=== PATIENT | female | born 1945 | race Caucasian/White ===

== ENCOUNTER 2019-02-07 21:07 | Inpatient (IN) | payer MEDICARE, BC ==
[~2019-02-07] VITALS: Ht 162.6 cm; Wt 94.9 kg
[2019-02-07 21:07] VITALS: BP 185/105
--- NOTE | 2019-02-07 21:08 | NUR ---
ED Nurse Note: FERNANDO from [facility], with complaints of Syncopal episode with suspects of seizure. PAtient is relaxed with son at bedside, will continue to monitor.
--- NOTE | 2019-02-07 21:14 | Emergency Room Report ---
History of Present Illness General Chief Complaint: Syncope Source: Patient Present Illness HPI This is a 73-year-old female with history of diabetes, hypertension, CAD with 2 previous MIs status post stents. She presents with chief complaint of syncope. She is visiting from [place]. She had chest pressure around 3 AM last night. She woke up and take nitroglycerin and went away. She said she had a good day today. She was eating dinner with her son when she lightheaded. She states she saw spots and became very pale. Her son said she was sweaty. She then had a syncopal episode. She was shaky. They thought that she may have had a seizure. 911 was called. On arrival, she is at baseline. She denies any fever or chills but denies any chest pain. She denies any other prodrome. She said this never happened to her before. Allergies: Uncoded Allergies: SULFA (Allergy, Unknown, 02/07/19) Patient History Past Medical History: see triage record, old chart reviewed, DM, HTN, LA, CAD Past Surgical History: other Pertinent Family History: none Social History: Denies: smoking Now: No Immunizations: other Reviewed Nursing Documentation: PMH: Agreed; PSxH: Agreed Nursing Documentation-PMH Hx Cardiac Problems: Yes - hx LA x2 Hx Hypertension: Yes Hx Diabetes: Yes Review of Systems Eye: Denies: eye pain, blurred vision ENT: Denies: ear pain, nose congestion, throat swelling Respiratory: Denies: cough, shortness of breath Cardiovascular: Denies: chest pain, palpitations Gastrointestinal: Denies: abdominal pain, diarrhea, nausea, vomiting Musculoskeletal: Denies: back pain, joint pain Skin: Denies: rash Neurological: Reports: dizziness; Denies: headache, numbness Endocrine: Denies: increased thirst, increased urine Hematologic/Lymphatic: Denies: easy bruising All Other Systems: negative except mentioned in HPI Physical Exam Vital Signs Date Time Temp Pulse Resp B/P (MAP) Pulse Ox O2 Delivery O2 Flow Rate FiO2 02/07/19 21:02 97.9 106 18 185/105 (131) 100 Room Air Vitals with high blood pressure Sp02 EP Interpretation: reviewed, normal General Appearance: well appearing, no apparent distress, alert, obese Head: normocephalic, atraumatic Eyes: bilateral eye PERRL, bilateral eye EOMI ENT: hearing grossly normal, normal pharynx Neck: full range of motion, supple, no meningismus Respiratory: chest non-tender, lungs clear, normal breath sounds Cardiovascular #1: regular rate, rhythm, no murmur Gastrointestinal: normal bowel sounds, non tender, no mass, no organomegaly, no bruit, non-distended Musculoskeletal: back normal, gait/station normal, normal range of motion Psychiatric: mood/affect normal Medical Decision Making Diagnostic Impression: Primary Impression: Syncope Qualified Codes: R55 - Syncope and collapse Additional Impressions: ACS (acute coronary syndrome) CHF exacerbation Qualified Codes: I50.9 - Heart failure, unspecified ER Course Patient presents with syncope. Likely arrhythmia related. Troponin is elevated. She is currently taking Eliquis for atrial fibrillation. She is in sinus. No chest pain. Will admit for further work-up. I discussed the case with Dr. Xavier who will admit. EKG Diagnostic Results Rate: normal Rhythm: NSR ST Segments: other - NSST depression inferior laterally. No ST elevation Rhythm Strip Diag. Results EP Interpretation: yes Rate: 60 Rhythm: NSR, no PVC's, no ectopy Chest X-Ray Diagnostic Results Chest X-Ray Diagnostic Results : Chest X-Ray Ordered: Yes # of Views/Limited/Complete: 1 View Indication: Chest Pain EP Interpretation: Yes Interpretation: no consolidation, no effusion, no pneumothorax, other - CM with chf Impression: Other - chf Electronically Signed by: Modesto Grant MD Last Vital Signs Date Time Temp Pulse Resp B/P (MAP) Pulse Ox O2 Delivery O2 Flow Rate FiO2 02/07/19 21:02 97.9 106 18 185/105 (131) 100 Room Air Status: improved Disposition: ADMITTED INPATIENT Condition: Serious Modesto Grant MD Feb 07, 2019 21:14
[2019-02-07 21:43] LABS: APPEARANCE,URINE CLEAR; BILIRUBIN, URINE NEGATIVE (NEGATIVE); COLOR,URINE PALE YELLOW; GLUCOSE, URINE (UA) NEGATIVE (NEGATIVE); KETONES,URINE NEGATIVE (NEGATIVE); LEUKOCYTE ESTERASE ,URINE 1+ (NEGATIVE); NITRITE,URINE NEGATIVE (NEGATIVE); PH,URINE 5 (4.5-8.0); PROTEIN,URINE 3+ (NEGATIVE); UROBILINOGEN,URINE NORMAL MG/DL (0.0-1.0)
[2019-02-07 21:43] LABS: ANION GAP 16 mmol/L (5-15); BLOOD UREA NITROGEN 24 mg/dL (7-18); CALCIUM 9.2 MG/DL (8.5-10.1); CARBON DIOXIDE 19 MMOL/L (21-32); CHLORIDE 112 MMOL/L (98-107); POTASSIUM 3.6 MMOL/L (3.5-5.1); SODIUM 147 MMOL/L (136-145)
[2019-02-07 21:49] LABS: BASOPHILS % (AUTO) 0.9 % (0.0-2.0); EOSINOPHILS % (AUTO) 2.1 % (0.0-3.0); HEMATOCRIT 40.3 % (37.0-47.0); HEMOGLOBIN 13.2 G/DL (12.0-16.0); LYMPHOCYTES % (AUTO) 30.4 % (20.0-45.0); MEAN CORPUSCULAR VOLUME 86 FL (80-99); MONOCYTES % (AUTO) 7.2 % (1.0-10.0); NEUTROPHILS % (AUTO) 59.5 % (45.0-75.0); PLATELET COUNT 281 K/UL (150-450); RED BLOOD COUNT 4.68 M/UL (4.20-5.40); RED CELL DISTRIBUTION WIDTH 14.1 % (11.6-14.8); WHITE BLOOD COUNT 11.3 K/UL (4.8-10.8)
[2019-02-07 21:52] LABS: INR 1.1 (0.9-1.1)
[2019-02-07 21:58] LABS: ALANINE AMINOTRANSFERASE 89 U/L (12-78); ALBUMIN 3.3 G/DL (3.4-5.0); ALBUMIN/GLOBULIN RATIO 0.9 (1.0-2.7); ALKALINE PHOSPHATASE 136 U/L (46-116); ASPARTATE AMINO TRANSFERASE 101 U/L (15-37); BILIRUBIN,TOTAL 0.5 MG/DL (0.2-1.0); CKMB 4.8 NG/ML (0.0-3.6); CREATINE KINASE 129 U/L (26-308)
[2019-02-07] MEDS ORDERED: Aspirin Baby 81mg ORAL ONE (22:00)
[2019-02-07] MEDS ORDERED: Enoxaparin 120 mg inj SUBQ ONE (22:00)
--- NOTE | 2019-02-07 22:03 | NUR ---
ED Nurse Note: Patient tolerated medication well. Family has a number of questions, ERMD informed. Patient reports taking eliquis this morning, so order for Lovenox will be held, ERMD informed.
[2019-02-07] MEDS ORDERED: NORMODYNE200 MG ORAL (22:30)
[2019-02-07] MEDS ORDERED: ASPIR 8181 MG ORAL (22:30)
[2019-02-07] MEDS ORDERED: VITAMIN D400 INTLU ORAL (22:30)
[2019-02-07] MEDS ORDERED: CITALOPRAM HBR10 M1 ORAL (22:30)
[2019-02-07] MEDS ORDERED: NORVASC10 MG ORAL (22:30)
[2019-02-07] MEDS ORDERED: LEVOTHYROXINE175 MCG ORAL (22:30)
[2019-02-07] MEDS ORDERED: LIPITOR80 MG ORAL (22:30)
[2019-02-07] MEDS ORDERED: METHOTREXA25 MG/1 ML IJ (22:30)
[2019-02-07] MEDS ORDERED: AMBIEN5 MG ORAL (22:30)
[2019-02-07] MEDS ORDERED: REMICADE10 MG IV (22:30)
[2019-02-07] MEDS ORDERED: ISOSORBIDE1 G1 MC (22:30)
[2019-02-07] MEDS ORDERED: FLUCONAZOLE100 MG ORAL (22:30)
[2019-02-07] MEDS ORDERED: APIDRA100 UNIT/2 SQ (22:30)
[2019-02-07] MEDS ORDERED: INSULIN CHARG5 UNITS SUBQ (22:30)
[2019-02-07] MEDS ORDERED: TROSPIUM CHLORI60 MG PO (22:30)
[2019-02-07] MEDS ORDERED: TUMS500 MG ORAL (22:30)
[2019-02-07] MEDS ORDERED: NEURONTIN300 MG ORAL (22:30)
[2019-02-07] MEDS ORDERED: FOLIC ACID1 MG ORAL (22:30)
[2019-02-07] MEDS ORDERED: METFORMIN HCL500 M4 ORAL (22:30)
[2019-02-07] MEDS ORDERED: NITROFURANTOIN1 GM MC (22:30)
[2019-02-07] MEDS ORDERED: NOVOLIN 70100 UNIT/1 SUBQ (22:30)
[2019-02-07] MEDS ORDERED: LOSARTAN POTASS25 M1 PO (22:30)
--- NOTE | 2019-02-07 23:08 | NUR ---
ED Nurse Note: Patient is awake, alert and oriented x4, Has no complaints of pain at this time. Patient does report discomfort with the blood pressure cuff so it has been disconnected to avoid discomfort. Patient has one son remaining at bedside. Since Lasix administration patient has void three times. Will continue to monitor.
--- NOTE | 2019-02-07 23:25 | NUR ---
ED Nurse Note: Belongings sheet completed. Patient's son will take home most of her money and her wallet. Patient will go up with $20 in $5 bills.
[2019-02-08] MEDS ORDERED: Nitroglycerin Subl 0.4mg tab SL PRN
--- NOTE | 2019-02-08 00:40 | NUR ---
ED Nurse Note: Called and gave report to Crystal CUEVAS. She is aware that I will check blood sugar and redraw troponin for patient.
[2019-02-08 01:00] VITALS: BP 156/78
--- NOTE | 2019-02-08 01:00 | NUR ---
NURSE NOTES: Received pt via gurney from ED. Pt transferred to [facility] without any incident. Received report from MASON Lawrence. night monitor is in placed, IV site intact, asymptomatic and patent. Bed is in the lowest position and locked. Call light within reach. Belongings list checked and accounted. Pt's son at bedside. No signs and symptoms of acute distress noted at this time. Received orders from Dr. Bishop. Will note and carry out.
--- NOTE | 2019-02-08 01:01 | NUR ---
ED Nurse Note: Patient trasported to tele without incident.
--- NOTE | 2019-02-08 01:15 | NUR ---
NURSE NOTES: Contacted [facility] regarding Levemir label. [facility] said they will have it print shortly.
--- NOTE | 2019-02-08 01:45 | NUR ---
NURSE NOTES: Contacted [facility] for the third time and spoke to pharmacist, Mary, regarding Levemir and Novolog label which was not printed. Mary said there may be some kind of disconnection and to not hold medication because label cannot be printed. Will administer scheduled 10 units of Levemir SubQ. Asphalt Roller Operator, Lis Lucas and Charge nurse, Kasandra flores. Will ask Pharmacy to print label in the morning when they open.
--- NOTE | 2019-02-08 02:02 | NUR ---
NURSE NOTES: Administer 10 units of Levemir SubQ. Verified right pt, medication, dosage, route, time, frequency, and reason with MASON Leong due to inability to scan medication.
--- NOTE | 2019-02-08 02:46 | NUR ---
NURSE NOTES: Second Troponin draw is 0.427; Troponin trending down.
[2019-02-08 04:00] VITALS: BP 145/76
[2019-02-08] MEDS: NovoLOG Insulin Flexpen SUBQ SCH ×4 (06:22→21:48)
--- NOTE | 2019-02-08 06:38 | NUR ---
NURSE NOTES: Administered sliding scale Novolog 4 units SubQ. Verified right pt, medication, dosage, route, time, frequency, and reason with MASON Leong due to inability to scan medication.
[2019-02-08 07:27] LABS: BASOPHILS % (AUTO) 0.8 % (0.0-2.0); EOSINOPHILS % (AUTO) 1.3 % (0.0-3.0); HEMATOCRIT 39.9 % (37.0-47.0); HEMOGLOBIN 12.9 G/DL (12.0-16.0); LYMPHOCYTES % (AUTO) 20.7 % (20.0-45.0); MEAN CORPUSCULAR VOLUME 87 FL (80-99); MONOCYTES % (AUTO) 7.8 % (1.0-10.0); NEUTROPHILS % (AUTO) 69.4 % (45.0-75.0); PLATELET COUNT 252 K/UL (150-450); RED BLOOD COUNT 4.59 M/UL (4.20-5.40); RED CELL DISTRIBUTION WIDTH 14.4 % (11.6-14.8); WHITE BLOOD COUNT 9.7 K/UL (4.8-10.8)
--- NOTE | 2019-02-08 07:36 | NUR ---
HAND-OFF: Report given to MASON Rapp.
--- NOTE | 2019-02-08 07:47 | NUR ---
NURSE NOTES: Received report from MASON Rojas. Patient in bed resting, no active s/s cardiac, respiratory distress noticed at this time. Patient on room air, AOx4, SR with HR 62. IV on left hand 20G, asymptomatic, patent, intact. Endorsed MD made aware of troponin level. Bed in lowest position, side rails upx2, call light within reach. Will continue to monitor.
[2019-02-08 08:00] VITALS: BP 157/62
[2019-02-08 08:10] LABS: ANION GAP 13 mmol/L (5-15); BLOOD UREA NITROGEN 23 mg/dL (7-18); CALCIUM 9.4 MG/DL (8.5-10.1); CARBON DIOXIDE 22 MMOL/L (21-32); CHLORIDE 110 MMOL/L (98-107); CREATININE 0.9 MG/DL (0.55-1.30); POTASSIUM 3.7 MMOL/L (3.5-5.1); SODIUM 145 MMOL/L (136-145)
[2019-02-08] MEDS: Eliquis 5mg tablet ORAL SCH ×2 (08:48→17:34)
[2019-02-08] MEDS: Aspirin Baby 81mg ORAL SCH (08:48)
[2019-02-08] MEDS: Citalopram Hydrobromide 10mg Tab ORAL SCH (08:48)
[2019-02-08] MEDS: metFORMIN 500mg tab ORAL SCH ×3 (08:48→17:34)
[2019-02-08] MEDS: Labetalol 200mg tab ORAL SCH ×2 (08:49→21:00)
--- NOTE | 2019-02-08 10:45 | Diagnostic Imaging Report ---
Indications: Single episode, seizures Technique: Spiral acquisitions obtained through the brain. Angled axial and coronal 5 x 5 mm slices were reconstructed. Total dose length product 1611.85 mGycm. CTDI vol(s) 70.38 mGy. Dose reduction achieved using automated exposure control Comparison: None. Findings: No acute intracranial hemorrhage or edema. No mass effect nor midline shift. There is age-related enlargement of the ventricles and extra-axial CSF spaces. There is an old lacunar infarct in the right basal ganglia which results in ex vacuo dilatation of the frontal horn of the right lateral ventricle. There is extensive periventricular deep white matter low-attenuation consistent with chronic microvascular ischemic change. Otherwise normal whalen-white differentiation. The included sinuses are clear. There is suggestion of deformity of the right temporomandibular joint, probably with some associated degenerative change. Orbits are unremarkable. The calvarium is intact. Impression: Chronic and age-related changes. Negative for acute intracranial bleed or mass effect SPECT degenerative changes of the right temporomandibular joint Right basal ganglia old lacunar infarct This agrees with the preliminary interpretation provided overnight by [facility] teleradiology service. The CT scanner at [facility] is accredited by the [employer] and the scans are performed using protocols designed to limit radiation exposure to as low as reasonably achievable to attain images of sufficient resolution adequate for diagnostic evaluation.
--- NOTE | 2019-02-08 11:14 | Cardiology Report ---
APPROVED REPORT EKG Measurement Heart [id number] Normal sinus rhythm Left axis deviation t wave abnormalitey consider lateral ischemia Septal infarct, age undetermined Abnormal ECG
--- NOTE | 2019-02-08 11:52 | Cardiac Electrophysiology PN ---
Subjective Subjective Seen and examined. DW Son at bedside [id number] Objective Last 24 Hour Vital Signs Date Time Temp Pulse Resp B/P (MAP) Pulse Ox O2 Delivery O2 Flow Rate FiO2 02/08/19 09:00 Room Air 02/08/19 08:49 65 157/62 02/08/19 08:48 65 157/62 02/08/19 08:00 97.5 65 18 157/62 (93) 97 02/08/19 08:00 70 02/08/19 04:00 62 02/08/19 04:00 97.7 62 18 145/76 (99) 95 02/08/19 01:43 Room Air 02/08/19 01:13 68 02/08/19 01:01 97.9 18 185/105 100 Room Air 02/08/19 01:00 97.9 63 19 156/78 (104) 96 02/07/19 21:07 97.9 65 18 185/105 100 Room Air 02/07/19 21:02 97.9 106 18 185/105 (131) 100 Room Air Intake and Output 02/07/19 02/08/19 19:00 07:00 Intake Total 350 ml Balance 350 ml Intake Oral 350 ml # Voids 1 Laboratory Tests Test 02/07/19 21:13 02/07/19 21:31 02/08/19 00:30 02/08/19 06:00 White Blood Count 11.3 K/UL (4.8-10.8) H 9.7 K/UL (4.8-10.8) Red Blood Count 4.68 M/UL (4.20-5.40) 4.59 M/UL (4.20-5.40) Hemoglobin 13.2 G/DL (12.0-16.0) 12.9 G/DL (12.0-16.0) Hematocrit 40.3 % (37.0-47.0) 39.9 % (37.0-47.0) Mean Corpuscular Volume 86 FL (80-99) 87 FL (80-99) Mean Corpuscular Hemoglobin 28.2 PG (27.0-31.0) 28.1 PG (27.0-31.0) Mean Corpuscular Hemoglobin Concent 32.7 G/DL (32.0-36.0) 32.3 G/DL (32.0-36.0) Red Cell Distribution Width 14.1 % (11.6-14.8) 14.4 % (11.6-14.8) Platelet Count 281 K/UL (150-450) 252 K/UL (150-450) Mean Platelet Volume 5.6 FL (6.5-10.1) L 5.9 FL (6.5-10.1) L Neutrophils (%) (Auto) 59.5 % (45.0-75.0) 69.4 % (45.0-75.0) Lymphocytes (%) (Auto) 30.4 % (20.0-45.0) 20.7 % (20.0-45.0) Monocytes (%) (Auto) 7.2 % (1.0-10.0) 7.8 % (1.0-10.0) Eosinophils (%) (Auto) 2.1 % (0.0-3.0) 1.3 % (0.0-3.0) Basophils (%) (Auto) 0.9 % (0.0-2.0) 0.8 % (0.0-2.0) Prothrombin Time 11.2 SEC (9.30-11.50) Prothromb Time International Ratio 1.1 (0.9-1.1) Activated Partial Thromboplast Time 29 SEC (23-33) Sodium Level 147 MMOL/L (136-145) H 145 MMOL/L (136-145) Potassium Level 3.6 MMOL/L (3.5-5.1) 3.7 MMOL/L (3.5-5.1) Chloride Level 112 MMOL/L (98-107) H 110 MMOL/L (98-107) H Carbon Dioxide Level 19 MMOL/L (21-32) L 22 MMOL/L (21-32) Anion Gap 16 mmol/L (5-15) H 13 mmol/L (5-15) Blood Urea Nitrogen 24 mg/dL (7-18) H 23 mg/dL (7-18) H Creatinine 1.0 MG/DL (0.55-1.30) 0.9 MG/DL (0.55-1.30) Estimat Glomerular Filtration Rate mL/min (>60) mL/min (>60) Glucose Level 135 MG/DL (74-106) H 244 MG/DL (74-106) #H Calcium Level 9.2 MG/DL (8.5-10.1) 9.4 MG/DL (8.5-10.1) Total Bilirubin 0.5 MG/DL (0.2-1.0) Aspartate Amino Transf (AST/SGOT) 101 U/L (15-37) H Alanine Aminotransferase (ALT/SGPT) 89 U/L (12-78) H Alkaline Phosphatase 136 U/L (46-116) H Total Creatine Kinase 129 U/L (26-308) Creatine Kinase MB 4.8 NG/ML (0.0-3.6) H Creatine Kinase MB Relative Index 3.7 Troponin I 0.507 ng/mL (0.000-0.056) 0.427 ng/mL (0.000-0.056) Pro-B-Type Natriuretic Peptide 2256 pg/mL (0-125) H Total Protein 6.9 G/DL (6.4-8.2) Albumin 3.3 G/DL (3.4-5.0) L Globulin 3.6 g/dL Albumin/Globulin Ratio 0.9 (1.0-2.7) L Urine Color Pale yellow Urine Appearance Clear Urine pH 5 (4.5-8.0) Urine Specific Entiat 1.015 (1.005-1.035) Urine Protein 3+ (NEGATIVE) H Urine Glucose (UA) Negative (NEGATIVE) Urine Ketones Negative (NEGATIVE) Urine Blood Negative (NEGATIVE) Urine Nitrite Negative (NEGATIVE) Urine Bilirubin Negative (NEGATIVE) Urine Urobilinogen Normal MG/DL (0.0-1.0) Urine Leukocyte Esterase 1+ (NEGATIVE) H Urine RBC 0-2 /HPF (0 - 2) Urine WBC 2-4 /HPF (0 - 2) Urine Squamous Epithelial Cells Few /LPF (NONE/OCC) Urine Bacteria Few /HPF (NONE) Errol Oakley MD Feb 08, 2019 11:52
[2019-02-08 12:00] VITALS: BP 156/75
--- NOTE | 2019-02-08 12:05 | NUR ---
NURSE NOTES: STAT EKG done, Dr. Oakley at the nursing station, made aware of result. No order given at this time.
--- NOTE | 2019-02-08 13:46 | NUR ---
NURSE NOTES: Dr. Oakley made aware of troponin level 0.344. No order given at this time. Will continue to monitor.
--- NOTE | 2019-02-08 14:51 | NUR ---
CASE MANAGEMENT:REVIEW 73 YR OLD FEMALE BIBA CC: SYNCOPAL EPISODE...FAMILY REPORT SEIZURE SI: SYNCOPE. ACS. CHF 97.8 106 18 185/105 100% ON RA WBC+11.3 NA+147 TROPONIN(+) 0.507 IS: 500CC NS BOLUS ASA PO LOVENOX SQ IV LASIX CHEST XRAY IV LASIX : TO TELEMETRY UNIT IS: ASA PO QD NORVASC PO QD LABETALOL PO Q12 ELIQUIS PO BID
--- NOTE | 2019-02-08 15:11 | NUR ---
TRANSFER UPDATE CALLED [facility] AND SPOKE WITH AURELIANO WHO STATED PATIENT IS NOT ON THE LIST TO TRANSFER CUSTOMS DIRECTOR LEFT MESSAGE FOR DR SNEED REQUESTING HE CALL [facility] AND PLACE PATIENT ON THE LIST FOR TRANSFER THIS CUSTOMS DIRECTOR FAXED FACE SHEET TO [facility] T: [phone] F: [phone]
--- NOTE | 2019-02-08 15:45 | Consultation ---
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 On 02/07/2019 she had some chest discomfort and took some nitroglycerin for it later that day she was having dinner with her children and suddenly felt unwell and her vision started to blur, soon following that she apparently lost consciousness was having some abnormal body movements of her nonrhythmic nature and was not responding in a normal fashion. She was laid flat and within a few seconds she regained consciousness. The paramedics were called in and she was brought into the [facility] and has since been admitted. At this point in time she feels relatively well and feels that she is back to her normal self. She denies any similar symptoms in the past. On exam: Well oriented except for the exact date. Memory: 3/3-0, 1, 3 on second trial. Able to remember presidents TrCapigami to Conner Best with hints Mathematical skills fairly good Visual-spatial function preserved Speech normal Language normal Cranial nerves II through XII intact Motor normal Sensory normal Reflexes: Trace plus and bilaterally symmetrical at the biceps triceps and brachioradialis. 0 at both knees and ankles. Plantar responses flexor. Stance minimally wide-based. Gait minimally wide-based but stable and independent. IMPRESSION: Possible syncopal event. CT scan with old right frontal lacune. Doubt ictal phenomenon RECOMMENDATIONS: Work-up for cardiogenic source of syncope EEG to exclude interictal phenomena Blood pressure, blood sugar, and lipid control. Boris Shah M.D., M.S.P.H. Boris Shah MD Feb 08, 2019 15:45
--- NOTE | 2019-02-08 15:51 | NUR ---
NURSE NOTES: Nurse report given by MASON Rapp. Patient's awake and talking to her sons. Denies pain, no s/s of distress or SOB. Bed at lowest position, break engaged, call light within reach, side rails x 2, safety precaution apply. Will continue to monitor.
--- NOTE | 2019-02-08 15:51 | NUR ---
HAND-OFF: Report given to MASON Mcgowan.
[2019-02-08 16:00] VITALS: BP 136/71
--- NOTE | 2019-02-08 16:45 | Diagnostic Imaging Report ---
Indication: Dyspnea Technique: One view of the chest Comparison: none Findings: The heart is markedly enlarged. There is bilateral interstitial edema. The left hemidiaphragm is not well-demonstrated there are spinal stimulator wires noted Impression: Cardiomegaly with bilateral interstitial edema
--- NOTE | 2019-02-08 16:56 | History and Physical Report ---
DATE OF ADMISSION: 02/07/2019 REASON FOR ADMISSION: 1. Shortness of breath. 2. Chest pain. HISTORY OF PRESENT ILLNESS: The patient is a 73-year-old female, recently moved from [place]. She has a history of coronary artery disease, status post stent placement. The patient states her last stent was placed at [facility] here in [place]. She presented to the emergency room for further evaluation and care of chest pressure and pain starting at 3 a.m. the previous night. She states she started seeing some light spots, felt very sweaty, shaky, and almost passed out. She called 911. ALLERGIES: Sulfa. PAST MEDICAL HISTORY: 1. Coronary artery disease. 2. Diabetes mellitus. 3. Hypertension. 4. Myocardial infarction. PAST SURGICAL HISTORY: Percutaneous coronary intervention with stent. FAMILY HISTORY: Positive for hypertension and diabetes. SOCIAL HISTORY: No tobacco, alcohol, or illicit drug use. REVIEW OF SYSTEMS: NEUROLOGIC: The patient felt lightheaded and dizzy. CARDIOVASCULAR: The patient was having chest pressure and tightness. PULMONARY: Shortness of breath and nonproductive cough. GASTROINTESTINAL/GENITOURINARY: No change in bowel habits. No nausea, vomiting, or diarrhea. ENDOCRINOLOGY: No night sweats, fevers, or chills. MUSCULOSKELETAL: The patient feeling tired and fatigued. LABORATORY DATA: Laboratories dated February 07, 2019 sodium 147, potassium 3.6. Troponin 0.5 down to 0.4. AST 101, ALT 89. White cell count 9.7, hemoglobin 12.9, and platelet count 352. PHYSICAL EXAMINATION: VITAL SIGNS: Blood pressure 145/76, respiratory 18, pulse 62, temperature 97.7, and 95% oxygen saturation on room air. GENERAL: The patient awake, alert, not in distress. HEENT: Extraocular muscles intact. No lymphadenopathy noted. CARDIOVASCULAR: S1, S2. No rubs or gallops. PULMONARY: Clear to auscultation bilaterally. No rales, rhonchi, or wheezes. ABDOMEN: Nondistended and nontender. EXTREMITIES: edema noted. ASSESSMENT/PLAN: 1. Acute coronary syndrome with chest pain, with elevated troponin. The patient is on Eliquis. Cardiology has been consulted for further evaluation and management. 2. Diabetes mellitus. We will continue insulin therapy. 3. Shortness of breath with chest pain. Pulmonary to evaluate. The patient currently clinically stable. 4. Hypertension. We will continue home dose medication of labetalol. 5. Hypothyroidism. We will continue Synthroid. Cheikh Bishop MD DR: LUCY JOB#: [id number] CC:
--- NOTE | 2019-02-08 18:45 | Consultation ---
DATE OF CONSULTATION: 02/08/2019 CARDIOLOGY CONSULTATION CONSULTING PHYSICIAN: Errol Oakley M.D. REFERRING PHYSICIAN: Cheikh Bishop M.D. REASON FOR CONSULTATION: Syncope. HISTORY OF PRESENT ILLNESS: The patient is a 73-year-old lady with history of hypertension, insulin-dependent diabetes, hyperlipidemia, and coronary artery disease due to prior myocardial infarction and stents, the most recent one in September 2013 at [facility] when she underwent stenting of the 99% AV groove circumflex that was stented with 2.5 x 20 millimeter drug-eluting stent. The patient at that time refused to take statins for concern for myalgia and was recommended to be on aspirin indefinitely and Plavix 75 mg for only 1 year. The patient was visiting from [place] when she had chest pressure around 3 o'clock in the morning and woke up went away. She was eating dinner with her son when she felt lightheaded and she saw spots and then she became very pale. Her son said that she was very sweaty and then had a syncopal episode, was shaky, and that she had seizures. 911 was called. On arrival, the patient was at baseline. Did not have any chest pain or shortness of breath. The patient denies any prior history of similar episodes. In the emergency room, the patient's blood pressure was 185/105 with a pulse of 106. Her troponin was 0.5 and 0.4. BNP of 2200. EKG showed sinus rhythm with left axis deviation, incomplete right bundle-branch block. REVIEW OF SYSTEMS: Negative other than what was mentioned in history of present illness. PAST MEDICAL HISTORY: As mentioned above, but also includes rheumatoid arthritis. FAMILY HISTORY: Noncontributory. SOCIAL HISTORY: She lives at home. Does not smoke or drink alcohol. PHYSICAL EXAMINATION: VITAL SIGNS: Showed blood pressure of 157/62, pulse is 65, respirations 18, temperature 97.5. HEAD AND NECK: No JVD. LUNGS: Clear. CARDIOVASCULAR: Regular S1 and S2 with no gallop. ABDOMEN: Soft. EXTREMITIES: 1+ pitting edema. LABORATORY DATA: Labs show sodium 145, potassium 3.7, BUN of 22, creatinine 0.9, glucose of 244. Troponin 0.50 and 0.42. ASSESSMENT AND PLAN: 1. Non-ST elevation myocardial infarction with small troponin elevation. EKG does not show any ST elevation. The patient does not have any chest pain at this time. Her BNP is also 2256. Continue to treat the patient medically. The patient is on aspirin, Lipitor, and labetalol. Depending on the echocardiogram and repeat troponin, the patient may need a nuclear stress test or cardiac catheterization for further evaluation. 2. Syncope, etiology is not clear at this time. The patient underwent a head CT that showed chronic age-related changes, but no acute ventricular bleed or mass effect. Neuro evaluation is also pending. The patient is also on telemetry. 3. Hypertension. Continue Norvasc 10 mg daily, labetalol 200 mg b.i.d., and clonidine. 4. Diabetes, on metformin and insulin. 5. Hypothyroidism, on Synthroid. 6. Obesity. It is of note the patient is also on Eliquis 5 mg b.i.d. I asked the family regarding the indication, but no history of atrial fibrillation or DVT based on the records at [facility] or review of her records at [facility]. Thank you very much for allowing me to participate in the care of this patient. Please do not hesitate to contact me for any questions regarding my evaluation. Errol Oakley M.D. DR: CANDY JOB#: [id number] CC:
--- NOTE | 2019-02-08 19:10 | NUR ---
HAND-OFF: Report given to MASON Snow. Plan of care endorsed.
--- NOTE | 2019-02-08 19:15 | NUR ---
NURSE NOTES: Pt received from MASON Mcgowan alert and oriented x4 with no acute s/s of distress noted. IV site asymptomatic and patent on L hand 24 g, saline lock. Bed alarm on. Bed in lowest position, call light and belongings within reach.
--- NOTE | 2019-02-08 19:15 | Consultation ---
DATE OF CONSULTATION: 02/08/2019 PULMONARY CONSULTATION CONSULTING PHYSICIAN: Antonio Elena M.D. HISTORY OF PRESENT ILLNESS: This is a 73-year-old female with significant past medical history of hypertension and CAD, who came to hospital with syncopal episode. The patient is a resident from [place] and came to the hospital to attend her grandson She had chest pressure and she came to the hospital. There was also concern that she may have either passed out or had a seizure. At this time, she states she is feeling well and back to baseline. PAST MEDICAL HISTORY: Hypertension, diabetes mellitus, and previous CAD. PAST SURGICAL HISTORY: None. ALLERGIES: Sulfa. SOCIAL HISTORY: Denies alcohol or tobacco usage. HOME MEDICATIONS: Include amlodipine, Eliquis, aspirin, Lipitor, Celexa, Pepcid, Neurontin, labetalol, Levemir, Synthroid, and Glucophage. REVIEW OF SYSTEMS: Denies any headaches, hematemesis, melena, or hematochezia. PHYSICAL EXAMINATION: GENERAL: Reveals an obese female. HEENT: Unremarkable. VITAL SIGNS: Blood pressure at this time is 150/70, heart rate 75, and respirations 18. She is afebrile. LUNGS: Clear breath sounds bilaterally. HEART: Normal heart sounds. ABDOMEN: Soft. NEUROLOGIC: Nonfocal. IMAGING STUDIES: X-ray chest has not been obtained per my report. Head CT is negative except for old CVA. EKG shows normal sinus rhythm. X-ray chest per ER report is unremarkable except for mild CHF. IMPRESSION: 1. Probable underlying mild congestive heart failure. 2. Elevated troponin. 3. . 4. Hypertension. 5. Diabetes mellitus. 6. Hypothyroidism. DISCUSSION: Currently, I agree with plans from Neurology for conservative management. We will check serial troponins, consider echo, and continue medications. We will follow as caster operator. Agree with diuresis. Antonio Elena M.D. DR: JOHN PAUL JOB#: [id number] CC:
[2019-02-08 20:00] VITALS: BP 109/72
[2019-02-08] MEDS ORDERED: Zolpidem 5mg tab ORAL PRN ×2 (20:45→21:00)
[2019-02-08] MEDS: Levemir Flexpen SUBQ SCH ×2 (21:47)
--- NOTE | 2019-02-08 23:45 | Consultation ---
DATE OF CONSULTATION: 02/08/2019 NEUROLOGY CONSULTATION CONSULTING PHYSICIAN: Boris Shah M.D. REQUESTING PHYSICIANS: Errol Oakley M.D. & Cheikh Bishop M.D. HISTORY: Ms. Kenna Camarillo is a 73-year-old, right-handed, lady, who does have a past history of hypertension, diabetes mellitus, dyslipidemia, coronary artery disease - status post myocardial infarctions in the past with percutaneous interventions, lumbosacral spine disease for which she has a spinal stimulator, and recently an episode of pneumonia and lower extremity cellulitis. She was visiting her children from [place] and functioning relatively well until February 07, 2019 when she had some chest discomfort and took some nitroglycerin. Later that day, she was having dinner with her children and suddenly felt unwell. Her vision started to blur. Soon following that, she apparently lost consciousness and became diaphoretic. She then had some abnormal body movements of a non- rhythmic nature and was not responding in a normal fashion. She was then laid flat, and within a few seconds of that, she regained consciousness. By that time the paramedics were at her home and brought her to the [facility] emergency room and she has since been admitted. At this point in time, she feels that she is back to her normal self. She denies any weakness on one side or the other, numbness on one side or the other, problems with speech, problems with language, problems with vision, or problems with memory, and she also denies any similar symptoms in the past. PAST MEDICAL HISTORY: Significant for hypertension, diabetes mellitus, dyslipidemia, coronary artery disease with prior myocardial infarctions - status post percutaneous intervention, lumbosacral spine disease, and placement of spinal stimulator. FAMILY HISTORY: Nothing significant with no family history of neurological illness. PERSONAL HISTORY: Home: She lives in [place] and is visiting her children on [place]. 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 Habits: She smoked for approximately 8-9 years numerous years ago. She consumes approximately 2 alcoholic drinks in a month. She denies the use of any illicit drugs. PRESENT MEDICATIONS: Atorvastatin, gabapentin 400 mg at bedtime, aspirin 81 mg daily, Pepcid, Norvasc, Celexa, labetalol, metformin, Eliquis, Synthroid, insulin, nitroglycerin p.r.n., and Tylenol p.r.n. PHYSICAL EXAMINATION: GENERAL: She is a well-developed, well-nourished, slightly obese lady, lying in bed, in no acute distress. VITAL SIGNS: Pulse 59/minute, blood pressure 156/75 mmHg, respirations 20/minute, and temperature 97.2 degrees Fahrenheit. HEAD: Normocephalic and atraumatic. EENT: Examination benign. NECK: No neck rigidity was observed. NEUROLOGICAL EXAMINATION: MENTAL STATUS EXAMINATION: She was awake and alert. She was oriented to person, place, and time except for the exact date. She thought it was 26th. She was able to recall 3/3 words immediately after 1 minute and after 3 minutes on the second trial. She was able to remember Presidents Trump through Conner Best with hints. Her mathematical skills were fairly good. Her visuospatial function was preserved. SPEECH: She had no dysarthria. LANGUAGE: She had no aphasia. CRANIAL NERVE EXAMINATION: II: The visual painter were intact on confrontation testing. III, IV & : The external ocular movements were full and the pupils 3 mm in diameter, equal, round, regular, and reactive to light. V: She had normal facial sensations, and the temporales, masseters, and pterygoids functioned normally. VII: She had flattening of the right nasolabial fold. However, both sides of the face moved relatively well. VIII: She was able to hear and had no nystagmus. IX: The palate moved symmetrically on phonation. X: She had no hoarseness of voice. XI: The sternocleidomastoids and trapezii functioned normally. XII: The tongue was in the midline without any fasciculations or atrophy. MOTOR SYSTEM: The tone was normal in all four extremities. Examination of muscle mass revealed no focal wasting. Examination of power revealed G 5/5 power in all muscle groups tested. SENSORY EXAMINATION: She had intact sensations to pinprick, light touch, and graphesthesia. COORDINATION: She performed well on tczzdx-gc-grzv and tavi-gn-iusz testing. On Romberg test, she swayed, but did not fall to one side or the other. REFLEXES: Trace+ and bilaterally symmetrical at the biceps, triceps, and brachioradialis, 0 at both knees and ankles. The plantar responses were flexor bilaterally. STANCE: She had a minimally wide-based, but stable stance. GAIT: She walked with a minimally wide-based, but stable and independent gait. DIAGNOSTIC IMPRESSION: 1. Ms. Kenna Camarillo is a 73-year-old, right-handed, lady, who does have a past history of hypertension, diabetes mellitus, dyslipidemia, coronary artery disease, and lumbosacral spine disease, who yesterday had some chest discomfort for which she took nitroglycerin and a few hours later when she was having dinner, she suddenly felt unwell, her vision started to blur, she lost consciousness, became diaphoretic, had some abnormal nonrhythmic movements of her limbs, and as soon as she was laid flat, she regained consciousness. 2. On neurological examination at this time, she does have minimal problems with orientation, and recent and remote memory, but no focal or lateralizing findings on her neurological examination. Her deep tendon reflexes are diminished in the upper extremities and lost in the lower extremities. She sways on Romberg test, and has a minimally wide-based stance and gait. 3. She did have a CT scan of the brain performed on February 08, 2019, which revealed an old right basal ganglion lacunar infarct and in addition, microvascular cerebrovascular disease. No acute pathology was seen. 4. Laboratory data obtained thus far have revealed a relatively normal CBC, a chemistry panel with a BUN elevated at 23, glucose elevated at 244, and elevated troponins. 5. The patient's history, neurological examination, laboratory data, and imaging studies are most consistent with a possible syncopal event. The exact etiology for the syncope is unclear at this time, but the most likely etiology would be a cardiac arrhythmia. 6. There is a question of whether the patient had a, seizure, however historically from what the patient and her son describes, the most likely event was a syncopal event. However, she will be worked up thoroughly for interictal or ictal phenomena. RECOMMENDATIONS: 1. Agree with management thus far. 2. Cardiac workup as per Dr. Oakley. 3. An EEG will be ordered to evaluate the patient for interictal phenomena. 4. The patient's blood pressure, blood sugar, and lipids should be controlled. 5. Depending on the results of the above-mentioned tests, further recommendations will be given. Thank you for entrusting me with the care of Ms. Camarillo. I shall follow her with you. Boris Shah M.D., M.S.P.H. DR: BUBBA JOB#: [id number] ROSE
--- NOTE | 2019-02-09 02:07 | NUR ---
NURSE NOTES: Received call from Fiona from [facility] who stated that there are no beds for patient tonight but they will keep us updated as they find a bed for pt on 02/09/19.
[2019-02-09 03:37] LABS: BASOPHILS % (AUTO) 0.8 % (0.0-2.0); HEMATOCRIT 39.4 % (37.0-47.0); HEMOGLOBIN 12.7 G/DL (12.0-16.0); LYMPHOCYTES % (AUTO) 28.5 % (20.0-45.0); MEAN CORPUSCULAR VOLUME 87 FL (80-99); MONOCYTES % (AUTO) 9.1 % (1.0-10.0); NEUTROPHILS % (AUTO) 58.6 % (45.0-75.0); PLATELET COUNT 261 K/UL (150-450); RED BLOOD COUNT 4.54 M/UL (4.20-5.40); RED CELL DISTRIBUTION WIDTH 14.2 % (11.6-14.8); WHITE BLOOD COUNT 9.2 K/UL (4.8-10.8)
[2019-02-09 04:04] LABS: ANION GAP 10 mmol/L (5-15); BLOOD UREA NITROGEN 23 mg/dL (7-18); CALCIUM 9.2 MG/DL (8.5-10.1); CARBON DIOXIDE 24 MMOL/L (21-32); CHLORIDE 111 MMOL/L (98-107); CHOLESTEROL 215 MG/DL (< 200); HDL CHOLESTEROL 38 MG/DL (40-60); SODIUM 145 MMOL/L (136-145); TRIGLYCERIDES 233 MG/DL (30-150)
[2019-02-09] MEDS: NovoLOG Insulin Flexpen SUBQ SCH ×2 (06:44→12:03)
--- NOTE | 2019-02-09 07:32 | NUR ---
NURSE NOTES: Report received from MASON Snow. Pt shows no signs of distress, A+Ox4, denies pain/SOB. Respirations are even and unlabored on room air. IV site is intact and saline locked. Bed is at lowest position, brakes engaged, siderails x2, bed alarm on, and call light within reach. Pt is in stable condition; will continue to monitor.
--- NOTE | 2019-02-09 07:32 | NUR ---
HAND-OFF: Report given to MASON Schneider.
[2019-02-09 07:58] VITALS: BP 163/80
[2019-02-09] MEDS: Labetalol 200mg tab ORAL SCH (08:33)
[2019-02-09] MEDS: Citalopram Hydrobromide 10mg Tab ORAL SCH (08:33)
[2019-02-09] MEDS: Aspirin Baby 81mg ORAL SCH (08:33)
[2019-02-09] MEDS: Eliquis 5mg tablet ORAL SCH (08:34)
[2019-02-09] MEDS: metFORMIN 500mg tab ORAL SCH ×2 (08:34→11:59)
--- NOTE | 2019-02-09 08:58 | Pulmonology Progress Note ---
Assessment/Plan Assessment/Plan IMPRESSION: 1. Probable underlying mild congestive heart failure. 2. Elevated troponin. 3. Hypertension. 4. Diabetes mellitus. 5. Hypothyroidism. DISCUSSION: Currently, I agree with plans from Neurology for conservative management. I will follow as agency trainer. Agree with diuresis. Currently saturating 96% on RA Subjective Interval Events: States she is feeling well; slept well last night Constitutional: Reports: no symptoms HEENT: Repors: no symptoms Respiratory: Reports: no symptoms Cardiovascular: Reports: no symptoms Gastrointestinal/Abdominal: Reports: no symptoms Allergies: Uncoded Allergies: SULFA (Allergy, Unknown, 02/07/19) Objective Last 24 Hour Vital Signs Date Time Temp Pulse Resp B/P (MAP) Pulse Ox O2 Delivery O2 Flow Rate FiO2 02/09/19 08:35 74 163/80 02/09/19 08:33 74 163/80 02/09/19 07:58 97.7 74 19 163/80 (107) 95 02/09/19 04:00 57 02/09/19 00:00 56 02/08/19 21:00 58 109/72 02/08/19 21:00 Room Air 02/08/19 20:00 98.0 60 18 109/72 (84) 95 02/08/19 20:00 56 02/08/19 16:00 97.0 63 18 136/71 (92) 95 02/08/19 16:00 65 02/08/19 12:00 97.2 59 20 156/75 (102) 96 02/08/19 12:00 56 02/08/19 09:00 Room Air Intake and Output 02/08/19 02/09/19 19:00 07:00 Intake Total 440 ml Balance 440 ml Intake Oral 440 ml # Voids 3 4 General Appearance: no acute distress HEENT: normocephalic Respiratory/Chest: chest wall non-tender Cardiovascular: normal peripheral pulses Abdomen: normal bowel sounds Laboratory Tests 02/08/19 12:10: Troponin I 0.344H 02/08/19 18:50: Troponin I 0.306H 02/09/19 03:00: Troponin I 0.233H, White Blood Count 9.2, Red Blood Count 4.54, Hemoglobin 12.7 , Hematocrit 39.4, Mean Corpuscular Volume 87, Mean Corpuscular Hemoglobin 28.1 , Mean Corpuscular Hemoglobin Concent 32.4, Red Cell Distribution Width 14.2, Platelet Count 261, Mean Platelet Volume 5.9L, Neutrophils (%) (Auto) 58.6, Lymphocytes (%) (Auto) 28.5, Monocytes (%) (Auto) 9.1, Eosinophils (%) (Auto) 3.0, Basophils (%) (Auto) 0.8, Sodium Level 145, Potassium Level 4.0, Chloride Level 111H, Carbon Dioxide Level 24, Anion Gap 10, Blood Urea Nitrogen 23H, Creatinine 1.0, Estimat Glomerular Filtration Rate , Glucose Level 179H, Calcium Level 9.2, Pro-B-Type Natriuretic Peptide 2579H, Triglycerides Level 233H, Cholesterol Level 215H, LDL Cholesterol 142H, HDL Cholesterol 38L, Cholesterol/HDL Ratio 5.7H, Thyroid Stimulating Hormone (TSH) 0.123L, Free Thyroxine 1.09 Current Medications Medications (Trade) Dose Ordered Sig/Mohamud Route PRN Reason Start Time Stop Time Status Last Admin Dose Admin Acetaminophen (Tylenol) 650 mg Q4H PRN ORAL Mild Pain (Pain Scale 1-3) 02/08/19 00:00 03/10/19 00:00 02/08/19 13:29 Amlodipine Besylate (Norvasc) 10 mg DAILY ORAL 02/08/19 09:00 03/10/19 08:59 02/09/19 08:35 Apixaban (Eliquis) 5 mg BID ORAL 02/08/19 09:00 03/10/19 08:59 02/09/19 08:34 Aspirin (ASA) 81 mg DAILY ORAL 02/08/19 09:00 03/10/19 08:59 02/09/19 08:33 Atorvastatin Calcium (Lipitor) 40 mg QHS ORAL 02/08/19 21:00 03/10/19 20:59 02/08/19 21:42 Citalopram Hydrobromide (celeXA) 10 mg DAILY ORAL 02/08/19 09:00 03/10/19 08:59 02/09/19 08:33 Dextrose (Dextrose 50%) 25 ml Q30M PRN IV Hypoglycemia 02/08/19 00:00 03/10/19 00:00 Dextrose (Dextrose 50%) 50 ml Q30M PRN IV Hypoglycemia 02/08/19 00:00 03/10/19 00:00 Famotidine (Pepcid) 40 mg DAILY ORAL 02/08/19 09:00 03/10/19 08:59 02/09/19 08:34 Gabapentin (Neurontin) 400 mg QHS ORAL 02/08/19 21:00 03/10/19 20:59 02/08/19 21:41 Insulin Aspart (NovoLOG) BEFORE MEALS AND HS SUBQ 02/08/19 06:30 03/10/19 06:29 02/09/19 06:44 Insulin Detemir (Levemir) 10 units QHS SUBQ 02/08/19 00:00 03/10/19 00:00 02/08/19 21:47 Labetalol HCl (Normodyne) 200 mg Q12HR ORAL 02/08/19 09:00 03/10/19 08:59 02/09/19 08:33 Levothyroxine Sodium (Synthroid) 150 mcg DAILY@0630 ORAL 02/08/19 06:30 03/10/19 06:29 02/09/19 06:41 Metformin HCl (Glucophage) 500 mg TIPC ORAL 02/08/19 09:00 03/10/19 08:59 02/09/19 08:34 Nitroglycerin (Ntg) 0.4 mg Q5M PRN SL Prn Chest Pain 02/08/19 00:00 03/10/19 00:00 Zolpidem Tartrate (Ambien) 5 mg HSPRN PRN ORAL Insomnia 02/08/19 21:00 02/15/19 20:59 02/08/19 21:42 Antonio Elena MD Feb 09, 2019 08:58
--- NOTE | 2019-02-09 09:21 | Nephrology Progress Note ---
Assessment/Plan Assessment/Plan: A/P 1) ACS/Chest Pain- Trop I trending down - awaiting transfer to [facility] for heart catherization 2) CVA- appreciate neurology assistance 3) HTN- stable 4) Afib- on Eliquis 5) DM- insulin and metformin Subjective Date patient seen: Feb 09, 2019 Time patient seen: 09:17 ROS Limited/Unobtainable: No Allergies: Uncoded Allergies: SULFA (Allergy, Unknown, 02/07/19) Subjective Patient awaiting transfer to [facility] Objective Last 24 Hour Vital Signs Date Time Temp Pulse Resp B/P (MAP) Pulse Ox O2 Delivery O2 Flow Rate FiO2 02/09/19 08:35 74 163/80 02/09/19 08:33 74 163/80 02/09/19 07:58 97.7 74 19 163/80 (107) 95 02/09/19 04:00 57 02/09/19 00:00 56 02/08/19 21:00 58 109/72 02/08/19 21:00 Room Air 02/08/19 20:00 98.0 60 18 109/72 (84) 95 02/08/19 20:00 56 02/08/19 16:00 97.0 63 18 136/71 (92) 95 02/08/19 16:00 65 02/08/19 12:00 97.2 59 20 156/75 (102) 96 02/08/19 12:00 56 Intake and Output 02/08/19 02/09/19 19:00 07:00 Intake Total 440 ml Balance 440 ml Intake Oral 440 ml # Voids 3 4 Laboratory Tests 02/08/19 12:10: Troponin I 0.344H 02/08/19 18:50: Troponin I 0.306H 02/09/19 03:00: Troponin I 0.233H, White Blood Count 9.2, Red Blood Count 4.54, Hemoglobin 12.7 , Hematocrit 39.4, Mean Corpuscular Volume 87, Mean Corpuscular Hemoglobin 28.1 , Mean Corpuscular Hemoglobin Concent 32.4, Red Cell Distribution Width 14.2, Platelet Count 261, Mean Platelet Volume 5.9L, Neutrophils (%) (Auto) 58.6, Lymphocytes (%) (Auto) 28.5, Monocytes (%) (Auto) 9.1, Eosinophils (%) (Auto) 3.0, Basophils (%) (Auto) 0.8, Sodium Level 145, Potassium Level 4.0, Chloride Level 111H, Carbon Dioxide Level 24, Anion Gap 10, Blood Urea Nitrogen 23H, Creatinine 1.0, Estimat Glomerular Filtration Rate , Glucose Level 179H, Calcium Level 9.2, Pro-B-Type Natriuretic Peptide 2579H, Triglycerides Level 233H, Cholesterol Level 215H, LDL Cholesterol 142H, HDL Cholesterol 38L, Cholesterol/HDL Ratio 5.7H, Thyroid Stimulating Hormone (TSH) 0.123L, Free Thyroxine 1.09 Height (Feet): 5 Height (Inches): 4.00 Weight (Pounds): 209 General Appearance: no apparent distress, alert EENT: normal ENT inspection Neck: normal alignment, supple Cardiovascular: normal rate, regular rhythm Respiratory/Chest: lungs clear, normal breath sounds Abdomen: non tender, soft Edema: no edema noted Arm (L), no edema noted Arm (R), no edema noted Leg (L), no edema noted Leg (R), no edema noted Pedal (L), no edema noted Pedal (R), no edema noted Generalized Cheikh Bishop MD Feb 09, 2019 09:21
--- NOTE | 2019-02-09 09:50 | NUR ---
RD ASSESSMENT & RECOMMENDATIONS SEE CARE ACTIVITY FOR COMPLETE ASSESSMENT DAILY ESTIMATED NEEDS: Needs based on Obese, DM, cardiac 70kg adj 20-25 kcals/kg 8581-8784 total kcals 1-1.5 g protein/kg 70-105 g total protein 25-30 mL/kg 0455-1411 total fluid mLs NUTRITION DIAGNOSIS: Decreased fat and sodium needs r/t obesity and cardiac history as evidenced by pt is 210% of ideal body weight, morbidly obese per guidelines, elev triglycerides, chol, LDL labs, elev BP w/ h/o HTN, and elev BNP. CURRENT DIET: CCHO LOW PO DIET RECOMMENDATIONS--->>> CARDIAC/ CCHO LOW DIET ADDITIONAL RECOMMENDATIONS: 1) Obtain a standing weight as able; pt w/ conflicting wts: Stated:~240 lbs BED wt: 252 lbs EMR wt: 209 lbs 2) Rec diet change as above 3) Provided diet edu / cardiac diet 4) A1C for eval
--- NOTE | 2019-02-09 11:07 | NUR ---
TRANSFER UPDATE RECEIVED CALL FROM [facility] THEY WILL HAVE A BED LATER TODAY CHART IS BEING PREPARED AND IMAGING PLACED ON DISC
--- NOTE | 2019-02-09 11:27 | NUR ---
TRANSFER / UPDATE PATIENT HAS BEEN ACCEPTED AT [facility] ROOM 5031 T: [phone] FOR NURSE TO NURSE REPORT [facility] HAS BEEN ARRANGED FOR NEXT AVAILABLE WHICH IS [phone] TEXTILE CUTTING MACHINE OPERATOR ~ [facility]
[2019-02-09 12:00] VITALS: BP 143/77
--- NOTE | 2019-02-09 13:09 | NUR ---
NURSE NOTES: Report given to MASON Richmond @ [facility].
--- NOTE | 2019-02-09 13:12 | NUR ---
NURSE NOTES: [facility] ambulance to be here in 45 minutes.
--- NOTE | 2019-02-09 14:19 | NUR ---
NURSE NOTES: Transfer packet printed and given to industrial relations worker. Report given to him as well. patient case coordinator and wrist band removed. IV continued upon discharge as patient is going to a hospital. Patient left with all belongings and signed the belongings list. Patient in great spirits. VSS. Pt put on the monitor with ambulance personnel. Patient discharged safely via gurney with ambulance personnel.
--- NOTE | 2019-02-09 22:21 | Discharge Summary ---
Discharge Summary Discharge Summary _ DATE OF ADMISSION: 02/07/2019 DATE OF DISCHARGE: 02/09/2019 DISCHARGED BY: Dr. Cheikh Bishop CONSULTANTS: Dr. Joaquín Oakley BRIEF HOSPITAL COURSE: Patient is a 73-year-old female, who recently moved from [place]. She has history of coronary artery disease, status post stent placement. Her last stent was placed at [facility] here in [place]. She has medical history significant for diabetes mellitus, hypertension, coronary artery disease and ID. She presented to ED for complaints of chest pressure and shortness of breath. Chest pressure started costumer around 3 AM. She woke up and took nitroglycerin, with relief of symptoms. During the evening time, while eating dinner, she felt lightheaded. She stated she saw spots and became very pale. Her son said she was sweaty. She was shaky. They thought she might have had a seizure. 911 was called. On arrival to ED, she was at baseline. She denied any fever or chills. On evaluation, blood pressure was elevated to 185/105, heart rate 106. EKG showed normal sinus with nonspecific ST depression inferior laterally no ST elevation. She was taking Eliquis for atrial fibrillation, she was sinus rhythm on the monitor. Blood work showed WBC 11, hemoglobin 13, hematocrit 40. Sodium 1.7, potassium 3.6, chloride 112. BUN 24, creatinine 1.0. LFTs were elevated. Troponin was elevated to 0.507. proBNP 2256. INR 1.1. Urinalysis with +1 leukocyte esterase, 3+ protein. Chest x-ray showed cardiomegaly with bilateral interstitial edema. She was then admitted for evaluation of acute coronary syndrome, and shortness of breath. She was admitted to monitored floor. Cardiac enzymes were monitored. Eliquis was continued. Machine Puller was consulted. EKG did not show any ST elevation. She was given aspirin, she was given milligrams and clonidine. She has history of diabetes and was placed on metformin and insulin. TSH was 0.123. She was given aspirin and Lipitor. She was given GI protectant. She was placed on Norvasc and labetalol Neuro evaluation was done. On neuro evaluation, patient had problems with rotation, recent and remote memory, but no focal or lateralizing findings. Deep tendon reflexes were diminished in the upper extremities and loss in the lower extremities. She sways on Romberg test and has a minimally wide-based stance and gait. CT scan of the brain done revealed old right basal ganglia infarct and in addition microvascular cerebrovascular disease. No acute pathology was seen. Most probable cause of syncope most likely etiology would be cardiac arrhythmia. She was saturating well on room air. Troponin levels were downtrending. She was eventually transferred to [facility] for heart catheterization. FINAL DIAGNOSES: Acute coronary syndrome CVA Hypertension Atrial fibrillation on Eliquis Diabetes mellitus DISPOSITION: [facility] I have been assigned to complete a discharge summary on this account, I was not involved with the patient's management.--EDUARDO Whitehead Jacqueline Robles NP Feb 09, 2019 22:21
== END 2019-02-09 14:15 | disposition critical access hospital, planned readmission (94) | DRG 311 ==
LOC: EDBD 21:07 → EMR 21:30 → 2E 23:05 → EDBEDREQ 02-08 00:02
DX: I24.9 Acute ischemic heart disease, unspecified (principal); Z68.41 Body mass index [BMI] 40.0-44.9, adult; I11.0 Hypertensive heart disease with heart failure; I50.9 Heart failure, unspecified; I25.10 Atherosclerotic heart disease of native coronary artery without angina pectoris; R55 Syncope and collapse; Z88.2 Allergy status to sulfonamides; E11.9 Type 2 diabetes mellitus without complications; I25.2 Old myocardial infarction; Z79.01 Long term (current) use of anticoagulants; E03.9 Hypothyroidism, unspecified; Z95.5 Presence of coronary angioplasty implant and graft; E78.5 Hyperlipidemia, unspecified; Z86.73 Personal history of transient ischemic attack (TIA), and cerebral infarction without residual deficits; M06.9 Rheumatoid arthritis, unspecified; E66.9 Obesity, unspecified; Z79.82 Long term (current) use of aspirin; M53.87 Other specified dorsopathies, lumbosacral region
CPT/HCPCS: 36415; 70450; 71045; 80048; 80053; 80061; 81003; 82550; 82553; 82962; 83880; 84439; 84443; 84484; 85025; 85610; 85730; 93005; 93306; 96374; 99285; J1815; S5561